=== PATIENT | female | born 2005 | race African-American/Black ===

== ENCOUNTER 2025-04-28 14:46 | Emergency (ER) | payer SELFPAY ==
[~2025-04-28] VITALS: Ht 162.6 cm; Wt 55.0 kg
[2025-04-28 15:00] VITALS: O2SAT 98
[2025-04-28] MEDS: IBUPROFEN 600MG TABLET PO ONE (17:26)
[2025-04-28] MEDS ORDERED: NAPR-681 PO (17:32)
[2025-04-28 17:48] VITALS: BP 111/60; PULSE 89; RESP 16; TEMP 36.8; O2SAT 98
== END 2025-04-28 17:48 | disposition home or self-care (01) ==
LOC: ER 14:46
DX: M94.0 Chondrocostal junction syndrome [Tietze] (principal)
CPT/HCPCS: 71110; 93005; 99283